=== PATIENT | male | born 1950 | race Caucasian/White ===

== ENCOUNTER 2018-10-20 05:48 | Day surgery (SDC) | payer MEDICARE, BC ==
--- NOTE | 2018-10-17 18:30 | Pre-op HX & Phy Repo 2 SIG ---
DATE OF ADMISSION: 10/20/2018 PREOPERATIVE DIAGNOSIS: Stage 4 macular hole. BRIEF NOTE: This is the first [place] admission for this patient, who is a very nice 67-year-old gentleman, who complained of blurred central vision in the left eye for almost 2 months. On examination, he was found to have a stage 4 macular hole with vitreomacular traction. He is admitted for vitrectomy. PAST OCULAR HISTORY: Remarkable for pterygium removed on the right eye in 1949. He has not had cataract surgery or other intra-ocular procedures. He had spinal fusion done in September 2017. MEDICAL HISTORY: Remarkable for heart disease and asthma. MEDICATIONS: He is on Lipitor, Lunesta, azelastine, carvedilol, furosemide, and levocetirizine as well as losartan. ALLERGIES: He is allergic to penicillin. SOCIAL HISTORY: He is a nonsmoker and currently drinks to some degree. PHYSICAL EXAMINATION: Best vision at the time of admission was 20/30 in the right eye and 20/100 in the left with pressures of 14 and 13. The anterior segments were quiet in either eye. I. There was an old pterygium scar on the right. Early nuclear cataracts were seen. Funduscopic examination of the right eye showed what appeared to be mild perifoveal telangiectasia. The left fundus showed a stage 4 macular hole with traction. General physical examination will be done by Dr. Paredes. ASSESSMENT: Stage 4 macular hole, left eye. PLAN: The plan is to perform a pars plana vitrectomy with peeling of the internal limiting lamina and a gas-fluid exchange on the left eye. The risks and benefits of surgery were gone over with the patient with potential of infection, retinal detachment, cataract formation, failure of the hole to close, and remote possibility of loss of the eye. The risk of anesthesia was discussed. The patient understands and consents to the surgery, which will be performed on Saturday. Howie Diaz M.D. DR: Arlette JOB#: [id number] CC:
[~2018-10-20] VITALS: Ht 182.9 cm; Wt 89.4 kg
[2018-10-20] VITALS (7 sets, daily range): BP systolic 112–132; BP diastolic 63–74
[2018-10-20] MEDS ORDERED: Indocyanine Green 25mg Inj INJ ONE (06:00)
[2018-10-20] MEDS ORDERED: Pred Forte 1% Opth Susp 1ml LEFT EYE ONE (06:00)
[2018-10-20] MEDS: Phenylephrine 2.5% Op 2ml Soln LEFT EYE SCH ×3 (06:22→06:57)
[2018-10-20] MEDS: Flurbiprofen 0.03% Opth Sol 2.5ml LEFT EYE SCH ×3 (06:22→06:57)
[2018-10-20] MEDS: Cyclopentolate 1% Opth Sol 2ml LEFT EYE SCH ×3 (06:22→06:57)
[2018-10-20] MEDS: Vigamox Opth Soln 3ml LEFT EYE SCH ×3 (06:23→06:57)
[2018-10-20] MEDS ORDERED: Propofol 200mg/20ml IV ONE (06:48)
[2018-10-20] MEDS ORDERED: Midazolam 2mg/2ml Inj ONE (06:48)
[2018-10-20] MEDS ORDERED: fentaNYL 100 mcg/2 mL IV ONE (06:48)
[2018-10-20] MEDS ORDERED: LOSARTAN POTAS100 MG ORAL (06:55)
[2018-10-20] MEDS ORDERED: ATORVASTATIN CA20 MG ORAL (06:55)
[2018-10-20] MEDS ORDERED: DYMISTA NASAL S23 GM NS (06:55)
[2018-10-20] MEDS ORDERED: CARVEDILOL3.125 MG ORAL (06:55)
[2018-10-20] MEDS ORDERED: BREO ELLIPTA 11 EACH IH (06:55)
[2018-10-20] MEDS ORDERED: RANITIDINE HCL300 MG ORAL (06:55)
[2018-10-20] MEDS ORDERED: LUNESTA3 MG ORAL (06:55)
[2018-10-20] MEDS ORDERED: SPIRONOLACTONE25 MG ORAL (06:55)
[2018-10-20] MEDS ORDERED: FUROSEMIDE20 M1 ORAL (06:55)
[2018-10-20] MEDS ORDERED: Lidocaine 2% MPF 5ml Vial INJ ONE (07:15)
[2018-10-20] MEDS ORDERED: EPINEPHrine 1mg/1ml Amp ONE (07:15)
[2018-10-20] MEDS ORDERED: Dexamethasone 4mg/ml vial ONE (07:15)
[2018-10-20] MEDS ORDERED: Pred Forte 1% Opth Susp 1ml ONE (07:15)
[2018-10-20] MEDS ORDERED: Maxitrol Opth Oint 3.5gm ONE (07:15)
[2018-10-20] MEDS ORDERED: Kenalog-40 1ml Vial ONE (07:15)
[2018-10-20] MEDS ORDERED: Kenalog-10 5ml Inj ONE (07:15)
[2018-10-20] MEDS ORDERED: BSS 500ml btl ONE (07:16)
[2018-10-20] MEDS ORDERED: Povidone-Iodine 5% opth solution ONE (07:16)
[2018-10-20] MEDS ORDERED: Tetracaine 0.5% Opth 4ml Soln ONE (07:16)
[2018-10-20] MEDS ORDERED: BSS 15ml BTL ONE (07:16)
[2018-10-20] MEDS ORDERED: Sodium Hyaluronate 10 mg/ml 0.85ml ONE (07:16)
[2018-10-20] MEDS ORDERED: Bupivacaine 0.75% 30ml vial INJ ONE (07:16)
[2018-10-20 07:19] LABS: BASOPHILS % (AUTO) 1.5 % (0.0-2.0); EOSINOPHILS % (AUTO) 6.2 % (0.0-3.0); HEMATOCRIT 37.5 % (42.0-52.0); HEMOGLOBIN 12.9 G/DL (14.2-18.0); LYMPHOCYTES % (AUTO) 29.6 % (20.0-45.0); MEAN CORPUSCULAR VOLUME 96 FL (80-99); MONOCYTES % (AUTO) 15.1 % (1.0-10.0); NEUTROPHILS % (AUTO) 47.6 % (45.0-75.0); PLATELET COUNT 183 K/UL (150-450); RED BLOOD COUNT 3.89 M/UL (4.70-6.10); RED CELL DISTRIBUTION WIDTH 12.7 % (11.6-14.8); WHITE BLOOD COUNT 3.8 K/UL (4.8-10.8)
--- NOTE | 2018-10-20 07:44 | Pre-Procedure Note/Attestation ---
Pre-Procedure Note/Attestation Complete Prior to Procedure Planned Procedure: left Procedure Narrative: PPV, ICG assisted membrane peel, gas-fluid exchange left eye Indications for Procedure Pre-Operative Diagnosis: Stage four macular hole OS Attestation I attest that I discussed the nature of the procedure; its benefits; risks and complications; and alternatives (and the risks and benefits of such alternatives ), prior to the procedure, with the patient (or the patient's legal printing supplies sales representative). I attest that, if there was a reasonable possibility of needing a blood transfusion, the patient (or the patient's legal printing supplies sales representative) was given the [facility] standardized written summary, pursuant to the Fu[place]ibr[place] Blood Safety Act ([place] Health and Safety Code # 1645, as amended). I attest that I re-evaluated the patient just prior to the surgery and that there has been no change in the patient's H&P, except as documented below: Howie Diaz MD Oct 20, 2018 07:44
[2018-10-20] MEDS ORDERED: Norco 5mg/325mg tab ORAL PRN (07:45)
--- NOTE | 2018-10-20 07:48 | Anethesia Preoperative Eval ---
Anesthesia Pre-op PMH/ROS General Date of Evaluation: Oct 20, 2018 Time of Evaluation: 07:47 Anesthesiologist: Naa ASA Score: ASA 2 Mallampati Score Class I : Soft palate, uvula, fauces, pillars visible Class II: Soft palate, uvula, fauces visible Class III: Soft palate, base of uvula visible Class IV: Only hard plate visible Mallampati Classification: Class II Surgeon: Joe Diagnosis: L eye macular hole Surgical Procedure: L eye PPV Anesthesia History: none Family History: no anesthesia problems Allergies: Coded Allergies: LATEX (Verified Allergy, Severe, Itching, 10/20/18) PENICILLINS (Verified Allergy, Unknown, 10/17/18) Patient NPO?: Yes Past Medical History Cardiovascular: Reports: HTN - stable; Denies: CAD, [place], valve dz, arrhythmia, other Pulmonary: Denies: asthma, COPD, ANNA, other Gastrointestinal/Genitourinary: Reports: GERD - mild; Denies: CRI, ESRD, other Neurologic/Psychiatric: Denies: dementia, CVA, depression/anxiety, TIA, other Endocrine: Denies: DM, hypothyroidism, steroids, other HEENT: Denies: cataract (L), cataract (R), glaucoma, [place] (L), [place] (R), other Hematology/Immune: Denies: anemia, DVT, bleeding disorder, other Musculoskeletal/Integumentary: Denies: OA, RA, DJD, DDD, edema, other PMH Narrative: as above PSxH Narrative: Cervical spine fusion Anesthesia Pre-op Phys. Exam Physician Exam Last Vital Signs Date Time Temp Pulse Resp B/P (MAP) Pulse Ox O2 Delivery O2 Flow Rate FiO2 10/20/18 06:55 Room Air 10/20/18 06:32 96.5 70 18 124/68 97 Constitutional: NAD Neurologic: CN 2-12 intact Cardiovascular: RRR, no M/R/G Respiratory: CTA Gastrointestinal: S/NT/ND Airway Exam Mallampati Score: Class II MO: full Neck: stiff ROM: limited Teeth: intact Dentures: no upper, no lower Anesthesia Pre-op A/P Labs Hematology Test 10/20/18 07:00 White Blood Count 3.8 K/UL (4.8-10.8) L Red Blood Count 3.89 M/UL (4.70-6.10) L Hemoglobin 12.9 G/DL (14.2-18.0) L Hematocrit 37.5 % (42.0-52.0) L Mean Corpuscular Volume 96 FL (80-99) Mean Corpuscular Hemoglobin 33.1 PG (27.0-31.0) H Mean Corpuscular Hemoglobin Concent 34.3 G/DL (32.0-36.0) Red Cell Distribution Width 12.7 % (11.6-14.8) Platelet Count 183 K/UL (150-450) Mean Platelet Volume 6.6 FL (6.5-10.1) Neutrophils (%) (Auto) 47.6 % (45.0-75.0) Lymphocytes (%) (Auto) 29.6 % (20.0-45.0) Monocytes (%) (Auto) 15.1 % (1.0-10.0) H Eosinophils (%) (Auto) 6.2 % (0.0-3.0) H Basophils (%) (Auto) 1.5 % (0.0-2.0) Studies Pre-op Studies: EKG - NSR Risk Assessment & Plan Assessment: ASA 2 Plan: MAC with retrobulbar block Status Change Before Surgery: No Pre-Antibiotics Drug: none Bogdan Jacome MD Oct 20, 2018 07:48
[2018-10-20] MEDS ORDERED: LR 1000ml 1,000 ML IVLG SCH (08:14)
[2018-10-20] MEDS ORDERED: DiphenhydrAMINE 50mg/ml Inj IVP PRN (08:15)
[2018-10-20] MEDS ORDERED: fentaNYL 100 mcg/2 mL IV PRN (08:15)
--- NOTE | 2018-10-20 08:52 | Immediate Post-Op Evaluation ---
Immediate Post-Op Evalulation Immediate Post-Op Evalulation Procedure: L eye PPV membrane peel, fluid to gas exchange Date of Evaluation: Oct 20, 2018 Time of Evaluation: 08:51 IV Fluids: 400 Blood Products: none Estimated Blood Loss: min Urinary Output: none Blood Pressure Systolic: 136 Blood Pressure Diastolic: 72 Pulse Rate: 62 Respiratory Rate: 20 O2 Sat by Pulse Oximetry: 99 Temperature (Fahrenheit): 97.6 Pain Score (1-10): 1 Nausea: No Vomiting: No Complications none Patient Status: awake, patent, none Hydration Status: adequate Bogdan Jacome MD Oct 20, 2018 08:52
--- NOTE | 2018-10-20 09:05 | Brief Operative Note ---
Immediate Post Operative Note Operative Note Chief Complaint: Blurred central vision Left eye Pre-op Diagnosis: Stage four macular hole OS Procedure: PPV, membrane peel with ICG assist, Gas-fluid exchange Left eye Post-op Diagnosis: same as pre-op Surgeon: jeffry Anesthesiologist: Naa Anesthesia: MAC Specimen: none Complications: none Condition: stable Fluids: PER ANESTHESIA Estimated Blood Loss: none Drains: none Implant(s) used?: No oHwie Diaz MD Oct 20, 2018 09:05
--- NOTE | 2018-10-20 09:30 | Pre-op HX & Phy Repo 2 SIG ---
DATE OF ADMISSION: 10/20/2018 PRESURGICAL INTERNAL MEDICINE HISTORY AND PHYSICAL REASON FOR EVALUATION: I was asked by Dr. Howie Diaz to see this 67-year-old male, who is going for elective surgery on the left eye. The patient has a macular hole, left eye. The patient was examined. Chart was reviewed. PAST MEDICAL HISTORY/REVIEW OF SYSTEMS: Remarkable for history of heart attack, but history of cardiomyopathy resolved, history of bradycardia. No history of stroke or seizures. History of hypertension, controlled. No history of renal failure or prostate problem. Denies history of thyroid problem. No history of diabetes. No history of GI bleeding or heartburn. History of nasal polyps. No history of thyroid problem or anemia. Denies history of arthritis. History of cervical spine disc degenerative joint disease. PAST SURGICAL HISTORY: Nasal polyp and tonsil removed as a teenager. Surgery on the cervical spine disc five years ago. ALLERGIES: To penicillin and latex gloves. The patient has a seasonal bronchial asthma and uses albuterol inhaler p.r.n. FAMILY HISTORY: Father at the age of 91 of old age. Mother from brain cancer at age 71. PRESENT MEDICATIONS: Include atorvastatin 20 mg daily, nasal spray steroid, Coreg 3.125 mg tablet, Lunesta 5 mg at bedtime, furosemide 20 mg daily, losartan 100 mg daily, ranitidine 300 mg daily, spironolactone 25 mg daily, and eye drops. HABITS: Denies history of smoking. Alcohol, occasional wine. No street drugs. PHYSICAL EXAMINATION: GENERAL: Alert, well-developed, well-nourished male in his 60s. No acute distress. VITAL SIGNS: Blood pressure 124/68, temperature 96.5 degrees, pulse 70 , respirations 18, and O2 saturation 97%. SKIN: Clear, warm, and dry. No rashes. No lymph node enlargement. HEENT: Head, normocephalic . Ears, clear. No discharge. Eyes, full description per Dr. Howie Diaz. Mouth, clear and moist. No dentures. Tongue midline. NECK: Supple. No jugular venous distention. Carotids artery +2. Trachea midline. CHEST: No deformity or asymmetry. LUNGS: Clear to auscultation and percussion. No rales or rhonchi. HEART: Sinus rhythm. No murmur. No S3 or S4. PVCs rarely. ABDOMEN: Soft, benign. Liver and spleen not enlarged. No rebound. EXTREMITIES: No edema. No calf tenderness. No deformity. GENITOURINARY TRACT: Normal for gender. CVA nontender. No dysuria. NEUROLOGIC: No asymmetry. No tremor. No nystagmus. LABORATORY AND DIAGNOSTIC DATA: ECG sinus bradycardia 56 per minute, otherwise normal ECG. The patient did not eat or drink from midnight last night. Lab work pending. IMPRESSION: 1. Macular hole, left eye. 2. Hypertension, controlled. 3. Degenerative disc disease, cervical. 4. Cardiomyopathy in the past. 5. Bronchial asthma, seasonal. 6. History of nasal polyp. PLAN: Pars plana vitrectomy, left eye per Dr. Howie Diaz. CONCLUSION: The patient has history of hypertension controlled and cardiomyopathy, also controlled. No sign of congestive heart failure. The patient did not eat or drink from last night. Laboratory work pending. EKG, sinus bradycardia 56 per minute, otherwise normal. The patient's condition optimized for surgery. Thank you very much, Dr. Diaz, for privilege to participate in presurgical care of this interesting patient. Ansley Paredes M.D. DR: Deborah JOB#: [id number] CC:
--- NOTE | 2018-10-20 10:04 | 48 Hour Post Anesthesia Eval ---
Post Anesthesia Evaluation Procedure: L eye PPV membrane peel, fluid to gas exchange Date of Evaluation: Oct 20, 2018 Time of Evaluation: 10:03 Blood Pressure Systolic: 123 0: 74 Pulse Rate: 68 Respiratory Rate: 20 Temperature (Fahrenheit): 97.6 O2 Sat by Pulse Oximetry: 98 Airway: patent Nausea: No Vomiting: No Pain Intensity: 1 Hydration Status: adequate Cardiopulmonary Status: stable Mental Status/LOC: patient returned to baseline Follow-up Care/Observations: n/a Post-Anesthesia Complications: none Follow-up care needed: ready to discharge Bogdan Jacome MD Oct 20, 2018 10:04
--- NOTE | 2018-10-20 14:45 | Operative Note - Dictated ---
DATE OF OPERATION: 10/20/2018 PREOPERATIVE DIAGNOSIS: Stage 4 macular hole, eye. POSTOPERATIVE DIAGNOSIS: Stage 4 macular hole, eye. PROCEDURES: 1. Pars plana vitrectomy. 2. ICG assisted membrane peel. 3. Gas-fluid exchange, left eye. SURGEON: Howie Diaz M.D. NANOTECHNOLOGIST: None. ANESTHESIA: Local with sedation. ANESTHESIOLOGIST: Bogdan Jacome M.D. JUSTIFICATION FOR SURGERY: This 67-year-old gentleman noted diminished vision in the left eye rather was found to have a stage 4 macular hole. BRIEF NOTE: The patient was brought to the operating room, placed on OR table in supine position. After a time-out was performed and agreed upon by the staff, and initial monitoring secured by Dr. Jacome. Retrobulbar and Van Lint blocks were given in the standard way to the left eye. He was then prepped and draped in normal manner. A lid speculum was inserted into the left eye. Using a 23-gauge trocar system, cannulas were placed all except infranasal quadrant. Infusion was secured inferotemporally. Vitrectomy was begun posterior to the lens taking care to avoid contact. A central core vitrectomy was done with a small amount of Kenalog to identify the posterior hyaloid. The vitrectomy was extended to the periphery leaving a small vitreous skirt. The posterior hyaloid was engaged adjacent to the optic nerve and gently elevated. The vitrector was used to sever the posterior hyaloid free of a posterior retinal flap, which was left intact. Once vitrectomy had been completed, a posterior viewing lens was inserted and ICG three drops were applied posteriorly to stain the retina. This was rapidly evacuated from the eye. Using ILM forceps, the ILM was engaged near the papillomacular bundle. A Bret form worker was used to elevate the membrane, which was then peeled from the surface of the retina in an area roughly 3 disc diameters in size centered at the macula. No problems were encountered. The wide-angle viewing system was then brought back into the eye and remnants of the membranes were removed and the peripheral vitreous further removed. Scleral depression showed no peripheral breaks, tears, or detachments. An air-fluid exchange was performed followed by a gas-gas exchange using a 24% concentration of SF6. The cannulas were removed and all wounds were noted to be self-sealing. The eye was left normotensive. Subconjunctival Decadron and gentamicin were injected inferiorly. Intraoperative Maxitrol and atropine ointments were instilled. The eye was patched and shielded. The patient was taken to recovery in excellent condition to be placed in a face-down position. There were no complications. Howie Diaz M.D. DR: JENNY JOB#: [id number] CC: Howie Diaz M.D.; Fax#: [phone]
== END 2018-10-20 10:15 | disposition home or self-care (01) ==
LOC: SUR 05:48 → EDBD 07:30 → SUR 10:15
DX: H35.342 Macular cyst, hole, or pseudohole, left eye (principal); H43.822 Vitreomacular adhesion, left eye; I10 Essential (primary) hypertension; K21.9 Gastro-esophageal reflux disease without esophagitis; I25.2 Old myocardial infarction; R00.1 Bradycardia, unspecified; J45.909 Unspecified asthma, uncomplicated; M50.30 Other cervical disc degeneration, unspecified cervical region; Z79.899 Other long term (current) drug therapy; Z88.0 Allergy status to penicillin; Z91.040 Latex allergy status
CPT/HCPCS: 36415; 67042; 85025; 93005; J0171; J1100; J2250; J2704; J3010; J3301; J3470; J3490; 94003; 94150